=== PATIENT | male | born 1945 | race Caucasian/White ===

== ENCOUNTER 2017-04-06 21:10 | Emergency (ER) | payer MEDICARE, MEDICAID ==
[~2017-04-06] VITALS: Ht 170.2 cm; Wt 85.0 kg
[~2017-04-06 21:10] MED LIST: ACET160S2 PO; AMLO10TA80 PO; ATOR40TA70 PO; BENA20TA3 PO; CHOL100036 PO; CLON-457 PO; CLOP75TA33 PO; DOCU-150 PO; DONE5TAB33 PO; HYDR-4001 PO; HYDR25TA PO; LACT10SO7 PO; OLAN2.5T3 PO; PHEN100O PO; TAMS-11 PO; TEMA15CA PO; TRAM50TA PO
[2017-04-06 23:39] LABS: BASOPHILS % 0.6 % (0.0-2.0); EOSINOPHILS % 2.3 % (0.0-5.0); HEMATOCRIT. 41.7 % (42.0-52.0); HEMOGLOBIN. 14.4 g/dL (14.0-18.0); LYMPHOCYTES % 25.6 % (20.0-50.0); MEAN CORPUSCULAR HEMOGLOBIN 30.1 pg (28.0-32.0); MEAN CORPUSCULAR VOLUME 87.3 fL (80.0-94.0); MEAN PLATELET VOLUME 8.8 fl (7.4-10.4); MONOCYTES % 8.4 % (2.0-8.0); NEUTROPHILS % 63.1 % (40.0-76.0); PLATELET 152 x1000/uL (130-400); RED BLOOD CELL COUNT 4.78 mill/uL (4.7-6.1); RED CELL DISTRIBUTION WIDTH 13.8 % (11.6-14.6)
[2017-04-06 23:42] LABS: PROTHROMBIN TIME 10.6 sec (9.4-11.6)
[2017-04-06 23:52] LABS: CARBON DIOXIDE 30 mEq/L (21-32); CHLORIDE 104 mEq/L (98-107); TROPONIN I 0.03 ng/mL (0.00-0.04)
[2017-04-07 01:46] VITALS: BP 158/64
== END 2017-04-07 02:04 | disposition home or self-care (01) ==
LOC: ER 21:57
DX: R07.9 Chest pain, unspecified (principal); I11.9 Hypertensive heart disease without heart failure; I51.7 Cardiomegaly; E78.00 Pure hypercholesterolemia, unspecified; Z86.73 Personal history of transient ischemic attack (TIA), and cerebral infarction without residual deficits; I25.2 Old myocardial infarction
CPT/HCPCS: 36415; 71010; 80053; 83880; 84484; 85025; 85610; 93005; 99285

== ENCOUNTER 2017-10-20 13:58 | Emergency (ER) | payer MEDICARE, MEDICAID ==
[~2017-10-20] VITALS: Ht 175.3 cm; Wt 90.2 kg
[~2017-10-20 13:58] MED LIST changes: +DULO60CA44 PO; +PHEN100C12 PO
[2017-10-20 14:51] LABS: BASOPHILS % 0.8 % (0.0-2.0); EOSINOPHILS % 0.9 % (0.0-5.0); HEMATOCRIT. 43.5 % (42.0-52.0); HEMOGLOBIN. 15.2 g/dL (14.0-18.0); LYMPHOCYTES % 19.1 % (20.0-50.0); MEAN CORPUSCULAR HEMOGLOBIN 30.4 pg (28.0-32.0); MEAN CORPUSCULAR VOLUME 87.4 fL (80.0-94.0); MONOCYTES % 7.1 % (2.0-8.0); NEUTROPHILS % 72.1 % (40.0-76.0); PLATELET 149 x1000/uL (130-400); RED BLOOD CELL COUNT 4.98 mill/uL (4.7-6.1); RED CELL DISTRIBUTION WIDTH 13.5 % (11.6-14.6)
[2017-10-20 14:57] LABS: PROTHROMBIN TIME 10.9 sec (9.4-11.6)
[2017-10-20 15:03] LABS: CHLORIDE 105 mEq/L (98-107)
[2017-10-20 15:07] LABS: ETHANOL BLOOD < 10 mg/dL
[2017-10-20 17:58] VITALS: BP 145/78
== END 2017-10-20 18:12 | disposition short-term general hospital (02) ==
LOC: ER 14:36 → CANBEDREQ 20:56
DX: I63.9 Cerebral infarction, unspecified (principal); R29.810 Facial weakness; R53.1 Weakness; E78.00 Pure hypercholesterolemia, unspecified; I25.2 Old myocardial infarction; Z86.73 Personal history of transient ischemic attack (TIA), and cerebral infarction without residual deficits
CPT/HCPCS: 36415; 70450; 71045; 80053; 82962; 84484; 85025; 85610; 93005; 99291; G0482

== ENCOUNTER 2018-06-29 15:42 | Inpatient (IN) | payer MEDICARE, MEDICAID ==
[~2018-06-29] VITALS: Ht 182.9 cm; Wt 85.3 kg
[~2018-06-29 15:42] MED LIST changes: +ASPI-1159 PO; +BENA20TA10 PO; -BENA20TA3 PO; +CARV25TA47 PO; +FAMO20TA8 PO; +LOSA100T14 PO
[2018-06-29 16:00] VITALS: BP 137/68
[2018-06-29] MEDS ORDERED: SPIR25TA6 MT (18:38)
[2018-06-29] MEDS ORDERED: PHEN50TA2 MT (18:42)
[2018-06-29] MEDS ORDERED: OMEP40CA34 MT (18:42)
[2018-06-29] MEDS ORDERED: ASPI-1160 MT (18:42)
[2018-06-29] MEDS ORDERED: ATOR20TA MT (18:46)
[2018-06-29] MEDS ORDERED: AMLO10TA4 MT (18:46)
[2018-06-29] MEDS ORDERED: DONE5TAB7 MT (18:46)
[2018-06-29 20:00] VITALS: BP 113/65
[2018-06-30] VITALS: BP 163/64
[2018-06-30] MEDS ORDERED: ONDANSETRON HCL 4MG/2ML INJ IV PRN (00:30)
[2018-06-30 00:34] LABS: BASOPHILS % 0.4 % (0.0-2.0); EOSINOPHILS % 1.7 % (0.0-5.0); HEMATOCRIT. 41.4 % (42.0-52.0); HEMOGLOBIN. 14.5 g/dL (14.0-18.0); LYMPHOCYTES % 17.3 % (20.0-50.0); MEAN CORPUSCULAR HEMOGLOBIN 30.7 pg (28.0-32.0); MEAN CORPUSCULAR VOLUME 87.8 fL (80.0-94.0); MEAN PLATELET VOLUME 9.2 fl (7.4-10.4); MONOCYTES % 5.8 % (2.0-8.0); NEUTROPHILS % 74.8 % (40.0-76.0); PLATELET 143 x1000/uL (130-400); RED BLOOD CELL COUNT 4.72 mill/uL (4.7-6.1); RED CELL DISTRIBUTION WIDTH 13.4 % (11.6-14.6)
[2018-06-30 00:42] LABS: CHLORIDE 101 mEq/L (98-107)
[2018-06-30 04:00] VITALS: BP 146/54
[2018-06-30] MEDS: DEXT 5%/0.45% NACL 1000ML 1,000 ML IV SCH ×2 (05:44→18:35)
[2018-06-30 07:06] LABS: BASOPHILS % 0.6 % (0.0-2.0); EOSINOPHILS % 1.3 % (0.0-5.0); HEMATOCRIT. 41.5 % (42.0-52.0); HEMOGLOBIN. 14.6 g/dL (14.0-18.0); LYMPHOCYTES % 14.9 % (20.0-50.0); MEAN CORPUSCULAR VOLUME 88.2 fL (80.0-94.0); MEAN PLATELET VOLUME 9.7 fl (7.4-10.4); MONOCYTES % 5.8 % (2.0-8.0); NEUTROPHILS % 77.4 % (40.0-76.0); PLATELET 145 x1000/uL (130-400); RED BLOOD CELL COUNT 4.71 mill/uL (4.7-6.1); RED CELL DISTRIBUTION WIDTH 13.6 % (11.6-14.6)
[2018-06-30 07:23] LABS: CHLORIDE 103 mEq/L (98-107)
[2018-06-30 07:29] LABS: PHOSPHORUS 3.6 mg/dL (2.5-4.9)
[2018-06-30 07:30] LABS: LDL CHOLESTEROL 96 mg/dL (5-100)
[2018-06-30 07:31] LABS: HDL CHOLESTEROL 42 mg/dL (40-59)
[2018-06-30 07:34] LABS: TOTAL IRON BINDING CAPACITY 267 ug/dL (250-450)
[2018-06-30 07:36] LABS: T4 FREE 1.17 ng/dL (0.76-1.46)
[2018-06-30 08:00] VITALS: BP 142/64
[2018-06-30 12:00] VITALS: BP 131/63
[2018-06-30 16:00] VITALS: BP 160/68
[2018-06-30] MEDS: AMLODIPINE 10MG TABLET PO SCH (18:33)
[2018-06-30] MEDS: PHENYTOIN SODIUM EXTENDED 100MG CAPSULE PO SCH ×2 (18:34→21:19)
[2018-06-30] MEDS: SPIRONOLACTONE 25MG TABLET PO SCH (18:34)
[2018-06-30] MEDS: CARVEDILOL 25MG TABLET PO SCH (18:34)
[2018-06-30] MEDS: ASPIRIN 81MG TABLET PO SCH (18:34)
[2018-06-30] MEDS: LOSARTAN POTASSIUM 100 MG TABLET PO SCH (18:34)
[2018-06-30] MEDS: HYDROCHLOROTHIAZIDE 25MG TABLET PO SCH (18:35)
[2018-06-30 20:00] VITALS: BP 127/70
[2018-06-30] MEDS: ATORVASTATIN CALCIUM 20MG TABLET PO SCH (21:19)
[2018-06-30] MEDS: DONEPEZIL HCL 5MG TABLET PO SCH (21:19)
[2018-07-01] VITALS: BP 165/64
[2018-07-01] MEDS ORDERED: CLONIDINE 0.1MG TABLET PO PRN (00:45)
[2018-07-01 04:00] VITALS: BP 156/69
[2018-07-01] MEDS: PHENYTOIN SODIUM EXTENDED 100MG CAPSULE PO SCH ×3 (05:17→22:08)
[2018-07-01] MEDS: DEXT 5%/0.45% NACL 1000ML 1,000 ML IV SCH ×2 (05:17→19:24)
[2018-07-01 08:00] VITALS: BP 163/77
[2018-07-01] MEDS: AMLODIPINE 10MG TABLET PO SCH (08:59)
[2018-07-01] MEDS: CARVEDILOL 25MG TABLET PO SCH ×2 (08:59→22:07)
[2018-07-01] MEDS: ASPIRIN 81MG TABLET PO SCH (08:59)
[2018-07-01] MEDS: HYDROCHLOROTHIAZIDE 25MG TABLET PO SCH (08:59)
[2018-07-01] MEDS: OMEPRAZOLE 20MG CAPSULE EXTENDED RELEASE PO SCH (09:00)
[2018-07-01] MEDS: LOSARTAN POTASSIUM 100 MG TABLET PO SCH (09:00)
[2018-07-01] MEDS: SPIRONOLACTONE 25MG TABLET PO SCH (09:00)
[2018-07-01 12:00] VITALS: BP 130/60
[2018-07-01 16:00] VITALS: BP 155/89
[2018-07-01 20:00] VITALS: BP 168/72
[2018-07-01] MEDS: DONEPEZIL HCL 5MG TABLET PO SCH (22:08)
[2018-07-01] MEDS: ATORVASTATIN CALCIUM 20MG TABLET PO SCH (22:08)
[2018-07-02] VITALS: BP 131/60
[2018-07-02 04:00] VITALS: BP 146/75
[2018-07-02] MEDS: OMEPRAZOLE 20MG CAPSULE EXTENDED RELEASE PO SCH (06:45)
[2018-07-02] MEDS: PHENYTOIN SODIUM EXTENDED 100MG CAPSULE PO SCH ×2 (06:45→15:04)
[2018-07-02 08:00] VITALS: BP 163/63
[2018-07-02] MEDS: CARVEDILOL 25MG TABLET PO SCH (09:21)
[2018-07-02] MEDS: AMLODIPINE 10MG TABLET PO SCH (09:21)
[2018-07-02] MEDS: ASPIRIN 81MG TABLET PO SCH (09:22)
[2018-07-02] MEDS: SPIRONOLACTONE 25MG TABLET PO SCH (09:22)
[2018-07-02] MEDS: LOSARTAN POTASSIUM 100 MG TABLET PO SCH (09:23)
[2018-07-02] MEDS: HYDROCHLOROTHIAZIDE 25MG TABLET PO SCH (09:23)
[2018-07-02] MEDS: DEXT 5%/0.45% NACL 1000ML 1,000 ML IV SCH (09:38)
[2018-07-02 12:00] VITALS: BP 125/62
[2018-07-02 16:00] VITALS: BP 143/63
[2018-07-02 17:17] VITALS: BP 143/63
[2018-07-03 19:06] LABS: 25-HYDROXY VITAMIN D3 16 ng/mL (.)
== END 2018-07-02 18:08 | DRG 69 ==
LOC: 7WST 15:42 → 5WST 07-02 05:56
PROVIDERS: ADMIT Internal Medicine; ATTEND Internal Medicine
DX: G45.9 Transient cerebral ischemic attack, unspecified (principal); I69.351 Hemiplegia and hemiparesis following cerebral infarction affecting right dominant side; I69.354 Hemiplegia and hemiparesis following cerebral infarction affecting left non-dominant side; G93.89 Other specified disorders of brain; E78.5 Hyperlipidemia, unspecified; I11.9 Hypertensive heart disease without heart failure; R13.10 Dysphagia, unspecified; I25.10 Atherosclerotic heart disease of native coronary artery without angina pectoris; Z95.1 Presence of aortocoronary bypass graft; I69.322 Dysarthria following cerebral infarction; Z74.01 Bed confinement status; Z79.899 Other long term (current) drug therapy; Z79.82 Long term (current) use of aspirin
CPT/HCPCS: 36415; 71045; 80061; 82248; 82306; 83036; 83540; 83550; 83735; 84100; 84153; 84439; 84443; 84550; 92610; 93005; 93306; 93880; 97162; 97167; J3490; G0103

== ENCOUNTER 2019-11-17 13:55 | Inpatient (IN) | payer MEDICARE, MEDICAID ==
[~2019-11-17] VITALS: Ht 170.2 cm; Wt 73.0 kg
[~2019-11-17 13:55] MED LIST changes: -ACET160S2 PO; +AMLO10TA4 PO; -AMLO10TA80 PO; -ASPI-1159 PO; +ASPI-1160 PO; +ATOR20TA PO; -ATOR40TA70 PO; -BENA20TA10 PO; -CHOL100036 PO; -CLON-457 PO; -CLOP75TA33 PO; -DOCU-150 PO; -DONE5TAB33 PO; +DONE5TAB7 PO; -DULO60CA44 PO; -FAMO20TA8 PO; -HYDR-4001 PO; -LACT10SO7 PO; -LOSA100T14 PO; +LOSA100T32 PO; -OLAN2.5T3 PO; +OMEP40CA12 MT; -PHEN100C12 PO; -PHEN100O PO; +PHEN50TA2 MT; +SPIR25TA6 PO; -TAMS-11 PO; -TEMA15CA PO; -TRAM50TA PO
[2019-11-17 16:16] LABS: CHLORIDE 105 mEq/L (98-107)
[2019-11-17 16:30] LABS: BASOPHILS % 0.6 % (0.0-2.0); EOSINOPHILS % 1.2 % (0.0-5.0); HEMATOCRIT. 40.5 % (42.0-52.0); HEMOGLOBIN. 13.6 g/dL (14.0-18.0); LYMPHOCYTES % 16.4 % (20.0-50.0); MEAN CORPUSCULAR HEMOGLOBIN 29.4 pg (28.0-32.0); MEAN CORPUSCULAR VOLUME 87.4 fL (80.0-94.0); MEAN PLATELET VOLUME 9.5 fl (7.4-10.4); NEUTROPHILS % 75.8 % (40.0-76.0); PLATELET 202 x1000/uL (130-400); RED BLOOD CELL COUNT 4.63 mill/uL (4.7-6.1); RED CELL DISTRIBUTION WIDTH 14.3 % (11.6-14.6)
[2019-11-17 16:31] LABS: D-DIMER 1.36 mg/L FEU (<0.50); PROTHROMBIN TIME 10.7 sec (9.6-11.0)
[2019-11-17 19:33] LABS: CLARITY URINE CLEAR (CLEAR); COLOR URINE YELLOW (YELLOW); KETONES URINE NEGATIVE (NEGATIVE); LEUKOCYTE ESTERASE URINE NEGATIVE (NEGATIVE); NITRITE URINE NEGATIVE (NEGATIVE); OCCULT BLOOD URINE NEGATIVE (NEGATIVE); PROTEIN URINE NEGATIVE (NEGATIVE); UROBILINOGEN URINE 0.2 E.U./dL (0.2-1.0)
[2019-11-17] MEDS ORDERED: ACETAMINOPHEN 325MG TABLET PO PRN ×2 (22:00)
[2019-11-17] MEDS ORDERED: ONDANSETRON HCL 4MG/2ML INJ IV PRN (22:00)
[2019-11-17] MEDS ORDERED: ZOLPIDEM TARTRATE 5MG TABLET PO PRN (22:00)
[2019-11-17] MEDS ORDERED: LORAZEPAM 2MG/ML CPJ IV PRN (22:00)
[2019-11-17] MEDS ORDERED: CLONIDINE 0.1MG TABLET PO PRN (22:00)
[2019-11-17] MEDS ORDERED: GUAIFENESIN 200MG/10ML SUGAR FREE UDC PO PRN (22:00)
[2019-11-17] MEDS ORDERED: MAGNESIUM/ALUMINUM HYDROXIDE/SIMETHICONE 30ML UDC PO PRN (22:00)
[2019-11-18] MEDS: MVI, ADULT NO.1 10 ML, FOLIC ACID 1 MG in SODIUM CHLORIDE 0.9% 1,000 ML IV NR ×6 (01:15→23:30)
[2019-11-18 02:43] VITALS: BP 151/71
[2019-11-18] MEDS ORDERED: PANT40TA4 PO (03:33)
[2019-11-18] MEDS ORDERED: VALS320T16 PO (03:33)
[2019-11-18 04:00] VITALS: BP 161/87
[2019-11-18] MEDS: SODIUM CHLORIDE 0.9% INJ 3ML FLUSH IVF SCH ×3 (05:29→21:21)
[2019-11-18 08:00] VITALS: BP 158/71
[2019-11-18] MEDS: LOSARTAN POTASSIUM 100 MG TABLET PO SCH (09:00)
[2019-11-18] MEDS: AMLODIPINE 10MG TABLET PO SCH (09:00)
[2019-11-18] MEDS: ASPIRIN 81MG EC TABLET PO SCH (09:00)
[2019-11-18] MEDS: CARVEDILOL 12.5MG TABLET PO SCH ×2 (09:00→20:30)
[2019-11-18] MEDS: HYDROCHLOROTHIAZIDE 12.5MG CAPSULE PO SCH (09:00)
[2019-11-18 12:00] VITALS: BP 141/72
[2019-11-18 16:07] VITALS: BP 155/68
[2019-11-18 20:00] VITALS: BP 128/90
[2019-11-18] MEDS ORDERED: DONEPEZIL HCL 5MG TABLET PO SCH (21:00)
[2019-11-18] MEDS: ATORVASTATIN CALCIUM 20MG TABLET PO SCH (21:21)
[2019-11-18] MEDS: DONEPEZIL HCL 5MG TABLET PO SCH (21:45)
[2019-11-19] VITALS: BP 140/56
[2019-11-19 04:00] VITALS: BP 153/66
[2019-11-19] MEDS: SODIUM CHLORIDE 0.9% INJ 3ML FLUSH IVF SCH ×3 (05:16→20:56)
[2019-11-19 08:00] VITALS: BP 168/72
[2019-11-19] MEDS: ASPIRIN 81MG EC TABLET PO SCH (10:25)
[2019-11-19] MEDS: CARVEDILOL 12.5MG TABLET PO SCH ×2 (10:25→20:55)
[2019-11-19] MEDS: AMLODIPINE 10MG TABLET PO SCH (10:25)
[2019-11-19] MEDS: LOSARTAN POTASSIUM 100 MG TABLET PO SCH (10:25)
[2019-11-19] MEDS: HYDROCHLOROTHIAZIDE 12.5MG CAPSULE PO SCH (10:26)
[2019-11-19 12:00] VITALS: BP 168/69
[2019-11-19 16:00] VITALS: BP 143/80
[2019-11-19 20:00] VITALS: BP 155/62
[2019-11-19] MEDS: ATORVASTATIN CALCIUM 20MG TABLET PO SCH (20:55)
[2019-11-19] MEDS: DONEPEZIL HCL 5MG TABLET PO SCH (20:55)
[2019-11-20] VITALS: BP 156/61
[2019-11-20 04:00] VITALS: BP 139/56
[2019-11-20] MEDS: SODIUM CHLORIDE 0.9% INJ 3ML FLUSH IVF SCH ×3 (05:35→21:51)
[2019-11-20 08:00] VITALS: BP 155/65
[2019-11-20] MEDS: ASPIRIN 81MG EC TABLET PO SCH (09:36)
[2019-11-20] MEDS: CARVEDILOL 12.5MG TABLET PO SCH ×2 (09:36→21:00)
[2019-11-20] MEDS: AMLODIPINE 10MG TABLET PO SCH (09:37)
[2019-11-20] MEDS: HYDROCHLOROTHIAZIDE 12.5MG CAPSULE PO SCH (09:37)
[2019-11-20] MEDS: LOSARTAN POTASSIUM 100 MG TABLET PO SCH (09:37)
[2019-11-20 12:00] VITALS: BP 143/76
[2019-11-20 16:00] VITALS: BP 146/61
[2019-11-20 20:00] VITALS: BP 141/62
[2019-11-20] MEDS: DONEPEZIL HCL 5MG TABLET PO SCH (21:50)
[2019-11-20] MEDS: ATORVASTATIN CALCIUM 20MG TABLET PO SCH (21:50)
[2019-11-21] VITALS: BP 139/62
[2019-11-21 04:00] VITALS: BP 154/88
[2019-11-21] MEDS: SODIUM CHLORIDE 0.9% INJ 3ML FLUSH IVF SCH ×3 (05:35→21:01)
[2019-11-21 08:00] VITALS: BP 145/76
[2019-11-21] MEDS: LOSARTAN POTASSIUM 100 MG TABLET PO SCH (10:04)
[2019-11-21] MEDS: HYDROCHLOROTHIAZIDE 12.5MG CAPSULE PO SCH (10:05)
[2019-11-21] MEDS: CARVEDILOL 12.5MG TABLET PO SCH ×2 (10:05→20:53)
[2019-11-21] MEDS: ASPIRIN 81MG EC TABLET PO SCH (10:05)
[2019-11-21] MEDS: AMLODIPINE 10MG TABLET PO SCH (10:06)
[2019-11-21 12:00] VITALS: BP 127/63
[2019-11-21 16:00] VITALS: BP 118/73
[2019-11-21 20:00] VITALS: BP 106/70
[2019-11-21] MEDS: ATORVASTATIN CALCIUM 20MG TABLET PO SCH (21:00)
[2019-11-21] MEDS: DONEPEZIL HCL 5MG TABLET PO SCH (21:00)
[2019-11-22] VITALS: BP 135/68
[2019-11-22 04:00] VITALS: BP 151/58
[2019-11-22] MEDS: SODIUM CHLORIDE 0.9% INJ 3ML FLUSH IVF SCH ×3 (05:14→21:54)
[2019-11-22 08:00] VITALS: BP 171/66
[2019-11-22] MEDS: ASPIRIN 81MG EC TABLET PO SCH (09:28)
[2019-11-22] MEDS: CARVEDILOL 12.5MG TABLET PO SCH ×2 (09:29→21:00)
[2019-11-22] MEDS: LOSARTAN POTASSIUM 100 MG TABLET PO SCH (09:29)
[2019-11-22] MEDS: AMLODIPINE 10MG TABLET PO SCH (09:29)
[2019-11-22] MEDS: HYDROCHLOROTHIAZIDE 12.5MG CAPSULE PO SCH (09:29)
[2019-11-22 12:00] VITALS: BP 143/73
[2019-11-22 16:00] VITALS: BP 144/72
[2019-11-22 20:00] VITALS: BP 125/50
[2019-11-22] MEDS: DONEPEZIL HCL 5MG TABLET PO SCH (21:45)
[2019-11-22] MEDS: ATORVASTATIN CALCIUM 20MG TABLET PO SCH (21:45)
[2019-11-23] VITALS: BP 145/65
[2019-11-23 04:00] VITALS: BP 114/70
[2019-11-23] MEDS: SODIUM CHLORIDE 0.9% INJ 3ML FLUSH IVF SCH ×3 (06:01→21:02)
[2019-11-23 08:00] VITALS: BP 167/70
[2019-11-23] MEDS: CARVEDILOL 12.5MG TABLET PO SCH ×2 (09:00→20:40)
[2019-11-23] MEDS: HYDROCHLOROTHIAZIDE 12.5MG CAPSULE PO SCH (10:03)
[2019-11-23] MEDS: ASPIRIN 81MG EC TABLET PO SCH (10:03)
[2019-11-23] MEDS: LOSARTAN POTASSIUM 100 MG TABLET PO SCH (10:03)
[2019-11-23] MEDS: AMLODIPINE 10MG TABLET PO SCH (10:03)
[2019-11-23 12:00] VITALS: BP 169/63
[2019-11-23 16:00] VITALS: BP 146/71
[2019-11-23 20:00] VITALS: BP 151/62
[2019-11-23] MEDS: ATORVASTATIN CALCIUM 20MG TABLET PO SCH (20:40)
[2019-11-23] MEDS: DONEPEZIL HCL 5MG TABLET PO SCH (20:40)
[2019-11-24] VITALS: BP 123/53
[2019-11-24 04:00] VITALS: BP 142/63
[2019-11-24] MEDS: SODIUM CHLORIDE 0.9% INJ 3ML FLUSH IVF SCH ×2 (05:33→14:29)
[2019-11-24 08:00] VITALS: BP 142/61
[2019-11-24] MEDS: CARVEDILOL 12.5MG TABLET PO SCH (09:00)
[2019-11-24] MEDS: LOSARTAN POTASSIUM 100 MG TABLET PO SCH (09:30)
[2019-11-24] MEDS: AMLODIPINE 10MG TABLET PO SCH (09:31)
[2019-11-24] MEDS: ASPIRIN 81MG EC TABLET PO SCH (09:31)
[2019-11-24] MEDS: HYDROCHLOROTHIAZIDE 12.5MG CAPSULE PO SCH (09:31)
[2019-11-24 12:00] VITALS: BP 98/67
[2019-11-24 12:31] VITALS: BP 98/67
== END 2019-11-24 14:08 | DRG 178 ==
LOC: ER 14:11 → 7EST 18:25 → EDBEDREQ 18:27 → CANRESERV 21:08 → ENRESERV 21:08 → EDBEDREQ 21:38 → ENRESERV 23:26
PROVIDERS: ADMIT Internal Medicine; ATTEND Internal Medicine
DX: U07.1 COVID-19 (principal); R47.01 Aphasia; E44.0 Moderate protein-calorie malnutrition; I10 Essential (primary) hypertension; F03.90 Unspecified dementia, unspecified severity, without behavioral disturbance, psychotic disturbance, mood disturbance, and anxiety; E78.00 Pure hypercholesterolemia, unspecified; Z95.1 Presence of aortocoronary bypass graft; Z86.73 Personal history of transient ischemic attack (TIA), and cerebral infarction without residual deficits; I25.2 Old myocardial infarction; Z79.899 Other long term (current) drug therapy; Z79.82 Long term (current) use of aspirin
CPT/HCPCS: 36415; 71045; 80053; 81003; 83605; 84484; 85025; 85379; 93005; 96365; 99285; J3490; J7030